=== PATIENT | female | born 2005 | race Caucasian/White ===

== ENCOUNTER 2025-03-09 06:33 | Emergency (ER) | payer OTHER ==
[~2025-03-09] VITALS: Ht 157.5 cm; Wt 59.0 kg
[~2025-03-09 06:33] MED LIST: VALA500T PO
[2025-03-09 06:40] VITALS: O2SAT 100
[2025-03-09] MEDS: LIDOCAINE 5% PATCH TOP SCH ×2 (07:06→09:00)
[2025-03-09 07:42] LABS: BASOPHILS % 0.4 % (0.0-2.0); EOSINOPHILS % 1.3 % (0.0-5.0); HEMATOCRIT. 37.0 % (36.0-48.0); HEMOGLOBIN. 12.2 g/dL (12.0-16.0); LYMPHOCYTES % 41.5 % (20.0-50.0); MEAN PLATELET VOLUME 7.4 fl (7.4-10.4); MONOCYTES % 5.1 % (2.0-8.0); NEUTROPHILS % 51.7 % (40.0-76.0); PLATELET 352 x1000/uL (130-400); RED BLOOD CELL COUNT 4.46 mill/uL (4.2-5.4); RED CELL DISTRIBUTION WIDTH 13.6 % (11.6-14.6)
[2025-03-09 07:56] LABS: CREATININE 0.8 mg/dL (0.6-1.0)
[2025-03-09 07:57] LABS: PROTEIN TOTAL 7.3 g/dL (6.0-8.3); UREA NITROGEN BLOOD 11 mg/dL (9-23)
[2025-03-09 07:58] LABS: ASPARTATE AMINOTRANSFERASE 13 IU/L (<34)
[2025-03-09 07:59] LABS: BILIRUBIN TOTAL 0.5 mg/dL (0.1-1.0)
[2025-03-09 08:07] LABS: HCG SCREEN NEGATIVE
[2025-03-09 08:15] LABS: CLARITY URINE CLOUDY (CLEAR); COLOR URINE YELLOW (YELLOW); GLUCOSE URINE NEGATIVE (NEGATIVE); KETONES URINE TRACE (NEGATIVE); LEUKOCYTE ESTERASE URINE NEGATIVE (NEGATIVE); NITRITE URINE NEGATIVE (NEGATIVE); OCCULT BLOOD URINE TRACE (NEGATIVE); PH URINE 6.0 (4.5-8.0); PROTEIN URINE NEGATIVE (NEGATIVE); SPECIFIC GRAVITY URINE 1.030 (1.005-1.030); UROBILINOGEN URINE 1.0 E.U./dL (0.2-1.0)
[2025-03-09] MEDS: KETOROLAC 30MG/ML VIAL IM ONE (08:45)
[2025-03-09 09:03] LABS: BACTERIA URINE 2+; RBC URINE 0-2 /hpf (0-2); SQUAMOUS EPITHELIAL CELL URINE 3+ /lpf (RARE/1+); WBC URINE 0-2 /hpf (0-2); YEAST URINE NONE SEEN
[2025-03-09] MEDS: HYDROCODONE/ACETAMINOPHEN 5/325MG TABLET PO ONE (09:23)
[2025-03-09] MEDS ORDERED: METH-773 MT (10:09)
[2025-03-09] MEDS ORDERED: CYCL5TAB3 MT (10:10)
[2025-03-09 10:41] VITALS: BP 98/65; PULSE 64; RESP 16; TEMP 37; O2SAT 99
== END 2025-03-09 10:42 | disposition home or self-care (01) ==
LOC: ER 06:33
DX: M54.50 Low back pain, unspecified (principal); Z97.5 Presence of (intrauterine) contraceptive device
CPT/HCPCS: 99285; 74176; 80053; 81003; 81025; 84703; 85025; 36415; 96372; J1885